=== PATIENT | female | born 1975 | race Caucasian/White ===

== ENCOUNTER 2020-05-18 14:54 | Emergency (ER) | payer MEDICAID ==
[2020-05-18] MEDS ORDERED: HYDROcod/ACETAM 5/325 MG TABLET PO STA (15:22)
--- NOTE | 2020-05-18 15:23 | ED Physician Documentation ---
PD HPI LOWER EXT INJURY - Stated complaint Stated Complaint: LT LEG INJ - Chief complaint Chief Complaint: Ext Problem - History obtained from History obtained from: Patient - History of Present Illness PD HPI LOW EXT INJURY LOCATION: Left (45-year-old woman with history of peripheral vascular disease was walking today and without actually falling felt a pop in the left calf with severe pain and unable to ambulate.) - Additional information Additional information: She is new to the area and ran out of her Plavix and needs a refill. Review of Systems Constitutional: reports: Reviewed and negative Eyes: reports: Reviewed and negative Ears: reports: Reviewed and negative Nose: reports: Reviewed and negative Throat: reports: Reviewed and negative Cardiac: reports: Reviewed and negative Respiratory: reports: Reviewed and negative PD PAST MEDICAL HISTORY - Present Medications Home Medications: Ambulatory Orders Medication Instructions Recorded Confirmed Clopidogrel [Plavix] 75 mg PO DAILY #90 tablet 05/18/20 Hydrocodone/Acetaminophen 1 - 2 tab PO Q6H PRN #15 tablet 05/18/20 [Hydrocodone-Acetamin 5-325 mg] - Allergies Allergies/Adverse Reactions: Allergies Allergy/AdvReac Type Severity Reaction Status Date / Time No Known Drug Allergies Allergy Verified 05/18/20 16:11 PD ED PE NORMAL - Vitals Vital signs reviewed: Yes - General General: Alert and oriented X 3, No acute distress - Extremities Extremities: Other (The left calf is tender exquisitely so, there is no tenderness of the Achilles. Gutierrez's test is quite painful but intact. Normal pedal pulses and cap refill.) - Neuro Neuro: Alert and oriented X 3, Normal speech Results - Vitals Vitals: Vital Signs - 24 hr 05/18/20 05/18/20 15:09 16:14 Temperature 37.2 C 36.8 C Heart Rate 88 83 Respiratory 16 16 Rate Blood Pressure 125/55 L 133/77 H O2 Saturation 99 100 Oxygen O2 Source Room air - Rads (name of study) DVT doppler Radiology: Prelim report reviewed PD MEDICAL DECISION MAKING - ED course ED course: No evidence of arterial disease, this is most consistent with calf strain or tear. No evidence of Achilles rupture. DVT ultrasound was negative per the tech for DVT. Departure - Departure Disposition: 01 Home, Self Care Clinical Impression: Strain of left calf muscle Condition: Good Record reviewed to determine appropriate education?: Yes Instructions: ED Strain Muscle Ext Follow-Up: [facility] [Provider Group] Prescriptions: Hydrocodone/Acetaminophen [Hydrocodone-Acetamin 5-325 mg] 1 - 2 tab PO Q6H PRN #15 tablet PRN Reason: Pain Clopidogrel [Plavix] 75 mg PO DAILY #90 tablet Comments: You may walk and bear weight as tolerated. Follow-up with the orthopedic surgeons if not better in a couple of days. Return as needed. Do not drink or drive while taking narcotic pain medication. Note that many narcotic pain relievers also contain Tylenol/acetaminophen. Please ensure that your total dose of acetaminophen from all sources does not exceed 3 g (3000 mg) per day. You may get constipated while on this medication. Take a stool softener such as Colace twice a day while you are on it. Also add an [id number] laxative such as senna or MiraLAX on any day that you do not have a bowel movement. If you received a narcotic pain medication or sedative while in the emergency department, do not drive for the next 24 hours. Discharge Date/Time: 05/18/20 16:25
[2020-05-18 16:16] VITALS: BP 133/77
--- NOTE | 2020-05-18 16:24 | Ultrasound Report ---
PROCEDURE: Duplex Ext Veins Left INDICATIONS: Left calf pain TECHNIQUE: Real-time imaging, as well as color and pulse Doppler interrogation, were performed of the lower extr emity deep veins from the inguinal ligament to the popliteal fossa. COMPARISON: None. FINDINGS: The deep veins are normally compressible, and free of intraluminal thrombus. Color and pu lse Doppler demonstrate normal phasic intraluminal flow. There is normal augmentation response to di stal compression maneuver. IMPRESSION: No evidence for deep venous thrombosis of the left lower extremity. Reviewed by: Tha Soriano MD on 05/18/2020 3:23 PM [facility] [place] Approved by: Tha Soriano MD on 05/18/2020 3:23 PM [facility] [place] Station ID: [id number]
== END 2020-05-18 16:25 | disposition home or self-care (01) ==
LOC: ED 14:54
DX: S86.912A Strain of unspecified muscle(s) and tendon(s) at lower leg level, left leg, initial encounter (principal); X50.9XXA Other and unspecified overexertion or strenuous movements or postures, initial encounter; Y93.01 Activity, walking, marching and hiking; Z76.0 Encounter for issue of repeat prescription; Z79.02 Long term (current) use of antithrombotics/antiplatelets
CPT/HCPCS: 93971; 99283; 99284; A9270